=== PATIENT | male | born 2000 ===

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

== ENCOUNTER 2021-01-14 15:37 | Outpatient (CLI) | payer OTHER | END 2021-01-14 19:00 | disposition home or self-care (01) | LOC: LAB 15:37 | DX: J20.8 Acute bronchitis due to other specified organisms (principal) ==

== ENCOUNTER 2022-03-06 14:04 | Outpatient (CLI) | payer OTHER | END 2022-03-06 14:13 | disposition home or self-care (01) | LOC: RAD 14:04 | DX: M00-M99 Diseases of the musculoskeletal system and connective tissue (principal) ==